=== PATIENT | female | born 1940 | race Caucasian/White ===

== ENCOUNTER 2017-10-31 12:57 | Inpatient (IN) | payer MEDICARE, BC ==
[~2017-10-31] VITALS: Ht 160 cm; Wt 94.5 kg
[2017-10-31 13:00] VITALS: BP 221/114; PULSE 80; RESP 20; O2SAT 99
--- NOTE | 2017-10-31 14:07 | RADRPT ---
EXAM DATE/TIME: 10/31/2017 13:37 [facility] COMPARISON: No previous studies available for comparison. INDICATIONS : Fall this morning, hit head and face. RADIATION DOSE: 56.35 CTDIvol (mGy) MEDICAL HISTORY : None SURGICAL HISTORY : None. ENCOUNTER: Initial ACUITY: 1 day PAIN SCALE: 4/10 LOCATION: cranial TECHNIQUE: Multiple contiguous axial images were obtained of the head. Using automated exposure control and adj ustment of the mA and/or kV according to patient size, radiation dose was kept as low as reasonably a chievable to obtain optimal diagnostic quality images. DICOM format image data is available electro nically for review and comparison. FINDINGS: CEREBRUM: The ventricles are normal for age. No evidence of midline shift, mass lesion, hemorrhage or acute in farction. No extra-axial fluid collections are seen. POSTERIOR FOSSA: The cerebellum and brainstem are intact. The 4th ventricle is midline. The cerebellopontine angle i s unremarkable. EXTRACRANIAL: There is marked soft tissue swelling overlying the left orbital region. I suspect there is an inferio r orbital rim fracture present. Facial bones CT scan is planned SKULL: The calvaria is intact. No evidence of skull fracture. CONCLUSION: Comminuted fracture of the left inferior orbital rim. Intracranial exam is normal. Jb Quintanilla MD on October 31, 2017 at 14:04 Board Certified Radiologist. This report was verified electronically.
--- NOTE | 2017-10-31 14:09 | RADRPT ---
EXAM DATE/TIME: 10/31/2017 13:39 [facility] COMPARISON: No previous studies available for comparison. INDICATIONS : Trauma, fall this morning. RADIATION DOSE: 26.34 CTDIvol (mGy) MEDICAL HISTORY : None SURGICAL HISTORY : None. ENCOUNTER: Initial ACUITY: 1 day PAIN SCALE: 4/10 LOCATION: neck TECHNIQUE: Volumetric scanning of the cervical spine was performed. Multiplanar reconstructions in the sagittal, coronal and oblique axial planes were performed. Using automated exposure control and adjustment o f the mA and/or kV according to patient size, radiation dose was kept as low as reasonably achievable to obtain optimal diagnostic quality images. DICOM format image data is available electronically f or review and comparison. FINDINGS: VERTEBRAE: Normal vertebral body height. Mild intervertebral disc space narrowing at the C6-7 and C5-6. No endpl ate fracture is seen. ALIGNMENT: No evidence of subluxation. C2-C3: The bony spinal canal is normal in size. No evidence of disc bulge or herniation. The neural forami na are bilaterally patent. C3-C4: The bony spinal canal is normal in size. No evidence of disc bulge or herniation. The neural forami na are bilaterally patent. The right C4 lamina is hypoplastic and sclerotic. C4-C5: The bony spinal canal is normal in size. No evidence of disc bulge or herniation. The neural forami na are bilaterally patent. C5-C6: The bony spinal canal is normal in size. No evidence of disc bulge or herniation. The neural forami na are bilaterally patent. C6-C7: The bony spinal canal is normal in size. No evidence of disc bulge or herniation. The neural forami na are bilaterally patent. C7-T1: The bony spinal canal is normal in size. No evidence of disc bulge or herniation. The neural forami na are bilaterally patent. CONCLUSION: Normal examination for an acute fracture. Degenerative disc disease at multiple levels. Hypoplastic s clerotic right C4 lamina. Jb Quintanilla MD on October 31, 2017 at 14:06 Board Certified Radiologist. This report was verified electronically.
--- NOTE | 2017-10-31 14:11 | RADRPT ---
EXAM DATE/TIME: 10/31/2017 13:39 [facility] COMPARISON: No previous studies available for comparison. INDICATIONS : Trauma, fall this morning. RADIATION DOSE: 65.36 CTDIvol (mGy) MEDICAL HISTORY : None SURGICAL HISTORY : None. ENCOUNTER: Initial ACUITY: 1 day PAIN SCORE: 5/10 LOCATION: facial TECHNIQUE: Volumetric scanning of the facial bones was performed. Using automated exposure control and adjustme nt of the mA and/or kV according to patient size, radiation dose was kept as low as reasonably achiev able to obtain optimal diagnostic quality images. DICOM format image data is available electronicall y for review and comparison. FINDINGS: ORBITS: There is a fracture through the inferior orbital rim on the left beginning anteriorly and extending m edially into the lamina papyracea. Fluid extends into the orbit without obvious muscular entrapment. I do not see any displaced fractures impinging the muscles NASAL BONE: The nasal bone and maxillary spine are intact ZYGOMATIC ARCHES: Symmetric without evidence of fracture. SINUSES: There is extensive fluid in the left maxillary sinus.. NASAL CAVITY: The nasal septum is intact and midline. The lacrimal ducts are intact. SOFT TISSUES: Soft tissue swelling overlying the left orbital region. INTRACRANIAL: No intracranial air seen. CRIBIFORM PLATE: Grossly intact. CONCLUSION: Left periorbital soft tissue swelling with a slightly displaced fracture of the inferior orbital rim. Jb Quintanilla MD on October 31, 2017 at 14:08 Board Certified Radiologist. This report was verified electronically.
--- NOTE | 2017-10-31 14:33 | RADRPT ---
EXAM DATE/TIME: 10/31/2017 13:18 [facility] COMPARISON: No previous studies available for comparison. INDICATIONS : Fell today. MEDICAL HISTORY : Injury to left wrist SURGICAL HISTORY : Surgery 2011 left wrist ENCOUNTER: Initial ACUITY: 1 day PAIN SCORE: Non-responsive. LOCATION: Left wrist FINDINGS: Three views left wrist demonstrates there is an impacted distal radial fracture with marked anterior angulation of the fracture. The distal radius is comminuted. There is marked arthritic change invol ving the 1st carpal metacarpal joint. Metatarsal bases are intact. CONCLUSION: Comminuted impacted distal radial fracture with marked anterior angulation. Jb Quintanilla MD on October 31, 2017 at 13:33 Board Certified Radiologist. This report was verified electronically.
[2017-10-31] MEDS ORDERED: ONDANSETRON HCL 4 MG/2 ML VIAL IV PUSH ONE (15:30)
[2017-10-31] MEDS ORDERED: HYDROmorphone HCL PF 2 MG/ML VIAL IV PUSH ONE (15:30)
--- NOTE | 2017-10-31 15:32 | PD ---
HPI Chief Complaint: Fall Time Seen by Provider: 14:56 Travel History International Travel<30 days: No Contact w/Intl Traveler<30days: No Traveled to known affect area: No History of Present Illness HPI 77 year-old female with a history of hypertension presents to the emergency room for evaluation of left arm pain and left-sided facial pain after mechanical trip and fall earlier today. Patient states she was walking on concrete when she lost her balance and fell forward landing directly on her face. She was wearing glasses. States she doesn't exactly remember falling because it happened so quickly but there was no loss of consciousness. She had her arms extended in front of her. She called an ambulance and they splinted her wrist and recommended she go to the nearby hospital in [place]. Patient is traveling from [place] to [facility] for the winter and wanted to keep going to be near her son. She takes baby aspirin daily. Of note, she had surgery on her left wrist in 2011 in [place]. Her surgeon took out a pin 2 weeks ago. She does not have a primary care physician or orthopedic surgeon in the area. Since falling she has had aches and pains throughout her body but nothing as severe as her wrist. [facility] Past Medical History High Cholesterol: Yes Hypertension: Yes ?: Not Menopausal: Yes Past Surgical History Cholecystectomy: Yes Eye Surgery: Yes (bilat cats ) Hysterectomy: Yes Social History Alcohol Use: No Tobacco Use: No Substance Use: No Allergies-Medications (Allergen,Severity, Reaction): Coded Allergies: codeine (Verified Allergy, Severe, 10/31/17) Reported Meds & Prescriptions Reported Meds & Active Scripts Active Reported Losartan (Losartan Potassium) 25 Mg Tab 25 Mg PO DAILY Vitamin B-12 (Cyanocobalamin) 1,000 Mcg Tab 1,000 Mcg PO DAILY Carvedilol 6.25 Mg Tab 6.25 Mg PO BID Hydrochlorothiazide 12.5 Mg Tab 12.5 Mg PO DAILY Citalopram (Citalopram Hydrobromide) 20 Mg Tab 20 Mg PO DAILY Omeprazole 20 Mg Tab 20 Mg PO DAILY Review of Systems Except as stated in HPI: all other systems reviewed are Neg Physical Exam Narrative GENERAL: Well-nourished, well-developed female in no acute distress. Afebrile. Ambulatory. SKIN: Focused skin assessment warm/dry. There is moderate periorbital ecchymosis of the left eye. HEAD: Normocephalic. EYES: PERRL, EOMI, no discharge or injection. No scleral icterus. EARS: Bilateral pinnae and external canals appear within normal limits. Bilateral tympanic membranes without erythema, dullness or perforation. No hemotympanum. NECK: Supple, trachea midline. No JVD or lymphadenopathy. CARDIOVASCULAR: Regular rate and rhythm without murmurs, gallops, or rubs. RESPIRATORY: Breath sounds equal bilaterally. No accessory muscle use. MUSCULOSKELETAL: No cyanosis. Moderate edema of the left wrist. 2+ radial pulse. Less than 2 second capillary refill distally. Moderate to significant tenderness to palpation of the distal radius. Full range motion of the elbow. Data Data Last Documented VS Vital Signs Date Time Temp Pulse Resp B/P (MAP) Pulse Ox O2 Delivery O2 Flow Rate FiO2 10/31/17 13:00 80 20 221/114 (149) [address] Brain W/O Iv Contrast(Rout) (10/31/17 ) Ct Cerv Spine W/O Contrast (10/31/17 ) Ct Facial Bones W/O Iv Cont (10/31/17 ) Wrist, Complete ([id number]) (10/31/17 ) Hydromorphone Pf Inj (Dilaudid Pf Inj) (10/31/17 15:30) Ondansetron Inj (Zofran Inj) (10/31/17 15:30) Splint Or Brace Apply/Monitor (10/31/17 15:28) Electrocardiogram (10/31/17 15:38) Complete Blood Count With Diff (10/31/17 15:38) Comprehensive Metabolic Panel (10/31/17 15:38) Prothrombin Time / Inr (Pt) (10/31/17 15:38) Act Partial Throm Time (Ptt) (10/31/17 15:38) Chest, Single Ap (10/31/17 15:38) Iv Access Insert/Monitor (10/31/17 15:38) Sodium Chloride 0.9% Flush (Ns Flush) (10/31/17 15:45) Diet Npo (10/31/17 Dinner) Consult Orthopedic (10/31/17 ) Consult Oral, Facial Surgery (10/31/17 ) Wrist, Limited (Ap&Lat) (10/31/17 ) (Hub Use Only)Inp Phy Cons/Ref (10/31/17 ) (Hub Use Only)In Phy Cons/Ref (10/31/17 ) Admit To Inpatient (10/31/17 ) Vital Signs (Adult) Q4H (10/31/17 16:27) Scouring Train Operator Chief / Telemetry .CONTINUOUS (10/31/17 16:27) Intake + Output TRACIE.QSHIFT (10/31/17 16:27) Sodium Chlor 0.9% 1000 Ml Inj (Ns 1000 M (10/31/17 17:00) Sodium Chloride 0.9% Flush (Ns Flush) (10/31/17 16:30) Sodium Chloride 0.9% Flush (Ns Flush) (10/31/17 21:00) Acetaminophen (Tylenol) (10/31/17 16:30) Ondansetron Inj (Zofran Inj) (10/31/17 16:30) Pt Request For Service (10/31/17 16:27) Ot Request For Service (10/31/17 16:27) Scd Bilateral/Knee High TRACIE.BID (10/31/17 16:27) Naloxone Inj (Narcan Inj) (10/31/17 16:30) Bisacodyl Supp (Dulcolax Supp) (10/31/17 16:30) Inpatient Certification (10/31/17 ) (Hub Use Only)[facility] Cons[facility]Ref (10/31/17 ) Fiberglass Sugartong Sp Ad Arm (10/31/17 ) Sling Cradle Arm (10/31/17 ) Admit Order (Ed Use Only) (10/31/17 16:35) Labs Laboratory Tests Test 10/31/17 16:00 White Blood Count 12.1 TH/MM3 Red Blood Count 4.45 MIL/MM3 Hemoglobin 14.2 GM/DL Hematocrit 42.2 % Mean Corpuscular Volume 94.9 FL Mean Corpuscular Hemoglobin 32.0 PG Mean Corpuscular Hemoglobin Concent 33.8 % Red Cell Distribution Width 12.9 % Platelet Count 214 TH/MM3 Mean Platelet Volume 10.4 FL Neutrophils (%) (Auto) 82.1 % Lymphocytes (%) (Auto) 12.6 % Monocytes (%) (Auto) 4.4 % Eosinophils (%) (Auto) 0.6 % Basophils (%) (Auto) 0.3 % Neutrophils # (Auto) 9.9 TH/MM3 Lymphocytes # (Auto) 1.5 TH/MM3 Monocytes # (Auto) 0.5 TH/MM3 Eosinophils # (Auto) 0.1 TH/MM3 Basophils # (Auto) 0.0 TH/MM3 CBC Comment DIFF FINAL Differential Comment Prothrombin Time 10.5 SEC Prothromb Time International Ratio 1.0 RATIO Activated Partial Thromboplast Time 24.6 SEC Blood Urea Nitrogen 19 MG/DL Creatinine 0.72 MG/DL Random Glucose 95 MG/DL Total Protein 7.5 GM/DL Albumin 3.9 GM/DL Calcium Level 8.8 MG/DL Alkaline Phosphatase 53 U/L Aspartate Amino Transf (AST/SGOT) 22 U/L Alanine Aminotransferase (ALT/SGPT) 31 U/L Total Bilirubin 0.4 MG/DL Sodium Level 139 MEQ/L Potassium Level 3.6 MEQ/L Chloride Level 102 MEQ/L Carbon Dioxide Level 29.3 MEQ/L Anion Gap 8 MEQ/L Estimat Glomerular Filtration Rate 78 ML/MIN MDM Medical Decision Making Medical Screen Exam Complete: Yes Emergency Medical Condition: Yes Medical Record Reviewed: Yes Differential Diagnosis Fracture, sprain, strain, contusion Narrative Course 77-year-old female presents to the emergency room for evaluation of left wrist pain and facial pain after a mechanical trip and fall earlier today. Patient fell forward landing face first. She denies loss of consciousness. Most significant pain is in the left wrist. Left wrist is neurovascularly intact with 2+ radial pulse and less than 2 second capillary refill distally. X-ray showed comminuted impacted distal radial fracture with marked anterior angulation. Patient was given Dilaudid and Zofran and her wrist was reduced in the OR with significant improvement. Sugar tong splint placed. I spoke to Dr. Jaimes, who recommends admission to medicine service for Dr. Jean-Baptiste to repair tomorrow. I spoke to Dr. Wright about the displaced fracture of the inferior orbital rim. Patient reports double vision but has no entrapment. Consults were placed. CBC and CMP are unremarkable. Patient is agreeable to admission. Physician Communication Physician Communication I spoke to Dr. Jaimes who recommends admission to the medical service with consultation to Dr. Jean-Baptiste for surgery tomorrow. Patient should be kept nothing by mouth after midnight. I spoke to Dr. Wright who will come to the ER to evaluate the patient. I spoke to Dr. Dorsey who agrees to admit this patient to her service. Diagnosis Primary Impression: Closed fracture of left wrist Qualified Codes: S62.102A - Fracture of unspecified carpal bone, left wrist, initial encounter for closed fracture Additional Impression: Orbit fracture, left Qualified Codes: S02.82XA - Fracture of other specified skull and facial bones , left side, initial encounter for closed fracture Admitting Information Admitting Physician Requests: Admit Condition: Stable Rosa Shaw Oct 31, 2017 15:32
[2017-10-31] MEDS ORDERED: OMEP20TA93 PO (15:35)
[2017-10-31] MEDS ORDERED: LOSA25TA PO (15:35)
[2017-10-31] MEDS ORDERED: CITA20TA4 PO (15:35)
[2017-10-31] MEDS ORDERED: VITA10002 PO (15:35)
[2017-10-31] MEDS ORDERED: HYDR12.56 PO (15:35)
[2017-10-31] MEDS ORDERED: CARV6.252 PO (15:35)
[2017-10-31] MEDS ORDERED: SODIUM CHLORIDE 0.9% FLUSH 10 ML FLUSH IVF PRN (15:45)
[2017-10-31 16:27] LABS: AUTOMATED NEUTROPHIL # 9.9 TH/MM3 (1.8-7.7); BASOPHIL % 0.3 % (0.0-2.0); EOSINOPHIL # 0.1 TH/MM3 (0-0.4); EOSINOPHIL % 0.6 % (0.0-4.0); HEMATOCRIT 42.2 % (35.0-46.0); HEMOGLOBIN 14.2 GM/DL (11.6-15.3); LYMPH % 12.6 % (9.0-44.0); LYMPHOCYTE # 1.5 TH/MM3 (1.0-4.8); MEAN CELL VOLUME 94.9 FL (80.0-100.0); MEAN CORPUSCULAR HGB CONC 33.8 % (32.0-36.0); MEAN PLATELET VOLUME 10.4 FL (7.0-11.0); MONO % 4.4 % (0.0-8.0); MONOCYTE # 0.5 TH/MM3 (0-0.9); NEUT % 82.1 % (16.0-70.0); PLATELET COUNT 214 TH/MM3 (150-450); RED BLOOD COUNT 4.45 MIL/MM3 (4.00-5.30); RED CELL DISTRIBUTION WIDTH 12.9 % (11.6-17.2); WHITE BLOOD COUNT 12.1 TH/MM3 (4.0-11.0)
[2017-10-31] MEDS ORDERED: NALOXONE HCL 0.4 MG/ML AMP IV PUSH PRN (16:30)
[2017-10-31] MEDS ORDERED: SODIUM CHLORIDE 0.9% FLUSH 10 ML FLUSH IV FLUSH PRN (16:30)
[2017-10-31] MEDS ORDERED: BISACODYL 10 MG SUPP RECTAL PRN (16:30)
[2017-10-31] MEDS ORDERED: ACETAMINOPHEN 325 MG TAB PO PRN (16:30)
[2017-10-31] MEDS ORDERED: ONDANSETRON HCL 4 MG/2 ML VIAL IVP PRN (16:30)
--- NOTE | 2017-10-31 16:31 | RADRPT ---
EXAM DATE/TIME: 10/31/2017 16:17 [facility] COMPARISON: No previous studies available for comparison. INDICATIONS : Chest discomfort; fall today. MEDICAL HISTORY : None. SURGICAL HISTORY : None. ENCOUNTER: Initial ACUITY: 1 day PAIN SCORE: 10/23 LOCATION: Bilateral chest FINDINGS: A single view of the chest demonstrates the lungs to be symmetrically aerated without evidence of mas s, infiltrate or effusion. The cardiomediastinal contours are unremarkable. Osseous structures are intact. CONCLUSION: Normal examination. Large hiatal hernia. Jb Quintanilla MD on October 31, 2017 at 16:29 Board Certified Radiologist. This report was verified electronically.
[2017-10-31 16:33] LABS: PROTHROMBIN TIME - PATIENT 10.5 SEC (9.8-11.6)
--- NOTE | 2017-10-31 16:34 | RADRPT ---
EXAM DATE/TIME: 10/31/2017 16:18 [facility] COMPARISON: No previous studies available for comparison. INDICATIONS : Post reduction left wrist. MEDICAL HISTORY : None. SURGICAL HISTORY : None. ENCOUNTER: Subsequent ACUITY: 1 day PAIN SCORE: 0/10 LOCATION: Left wrist FINDINGS: Two view examination of the left wrist demonstrates casting material overlies the fracture. There is now much better alignment of the distal radial fracture CONCLUSION: Much better alignment of the distal radial fracture with casting material been placed. Jb Quintanilla MD on October 31, 2017 at 16:30 Board Certified Radiologist. This report was verified electronically.
[2017-10-31 16:43] LABS: ALBUMIN 3.9 GM/DL (3.4-5.0); AST (GOT) 22 U/L (15-37); BICARBONATE 29.3 MEQ/L (21.0-32.0); BLOOD UREA NITROGEN 19 MG/DL (7-18); CALCIUM 8.8 MG/DL (8.5-10.1); CHLORIDE 102 MEQ/L (98-107); CREATININE 0.72 MG/DL (0.50-1.00); GLOMERULAR FILTRATION RATE 78 ML/MIN (>89); GLUCOSE,RANDOM 95 MG/DL (74-106); SODIUM (NA) 139 MEQ/L (136-145)
[2017-10-31 16:56] LABS: ALKALINE PHOSPHATASE 53 U/L (45-117); ALT (GPT) 31 U/L (10-53); TOTAL BILIRUBIN ADULT 0.4 MG/DL (0.2-1.0); TOTAL PROTEIN 7.5 GM/DL (6.4-8.2)
[2017-10-31 17:30] VITALS: BP 132/62; PULSE 64; RESP 17; TEMP 96.4; O2SAT 93
[2017-10-31] MEDS: SODIUM CHLOR 0.9% 1000 ML INJ 1,000 ML IV SCH (18:10)
--- NOTE | 2017-10-31 19:39 | EKG ---
Date Performed: 10/31/2017 Time Performed: 16:25:24 PTAGE: 77 years EKG: Sinus rhythm NORMAL ECG NO PREVIOUS TRACING DOCTOR: Geo Henry Interpretating Date/Time 10/31/2017 19:39:03
[2017-10-31 20:10] VITALS: BP 133/80; PULSE 80; RESP 18; TEMP 97; O2SAT 94
[2017-10-31] MEDS: SODIUM CHLORIDE 0.9% FLUSH 10 ML FLUSH IV FLUSH SCH (20:10)
[2017-10-31 20:12] VITALS: PULSE 74
[2017-10-31] MEDS ORDERED: HYDROmorphone HCL PF 2 MG/ML VIAL IV PUSH PRN ×2 (21:30)
--- NOTE | 2017-10-31 21:45 | HHI.HP ---
[facility] No Primary Care Physician Admission Diagnosis left distal radial fracture, left displaced inferior orbital rim Diagnoses: Chief Complaint: fall, nausea Travel History International Travel<30 Days: No Contact w/Intl Traveler <30 Da: No Traveled to Known Affected Are: No History of Present Illness 77 y/o female with history of HTN, and HLD presented to the ED after a trip and fall at a rest area. Patient is from [facility] [place] and was traveling here and stopped at a rest area for a bathroom break. When she was walking back to the car she tripped on the curb and fell forward with arms extended and hitting her face. She denies any LOC, dizziness or headaches. No chest pain, sob, fever or chills noted. She denies any pain currently but does complain of nausea and vomiting. She also states she has blurry vision in the left eye but she notices it is getting better. Review of Systems Except as stated in HPI: all other systems reviewed are Neg Past Family Social History Past Medical History HTN HLD Past Surgical History Cholecystectomy Hysterectomy Bilateral cataracts Left wrist surgery 2011 Reported Medications Reported Meds & Active Scripts Active Reported Losartan (Losartan Potassium) 25 Mg Tab 25 Mg PO DAILY Vitamin B-12 (Cyanocobalamin) 1,000 Mcg Tab 1,000 Mcg PO DAILY Carvedilol 6.25 Mg Tab 6.25 Mg PO BID Hydrochlorothiazide 12.5 Mg Tab 12.5 Mg PO DAILY Citalopram (Citalopram Hydrobromide) 20 Mg Tab 20 Mg PO DAILY Omeprazole 20 Mg Tab 20 Mg PO DAILY Allergies: Coded Allergies: codeine (Verified Allergy, Severe, 10/31/17) Active Ordered Medications Current Medications Medications (Trade) Dose Ordered Sig/Zeynep Route Start Time Stop Time Status Last Admin Sodium Chloride 1,000 ml @ 100 mls/hr Q10H IV 10/31/17 17:00 10/31/17 18:10 (NS Flush) 2 ml UNSCH PRN IV FLUSH 10/31/17 16:30 (NS Flush) 2 ml BID IV FLUSH 10/31/17 21:00 10/31/17 20:10 (Tylenol) 650 mg Q4H PRN PO 10/31/17 16:30 (Zofran Inj) 4 mg Q6H PRN IVP 10/31/17 16:30 10/31/17 20:10 (Narcan Inj) 0.4 mg UNSCH PRN IV PUSH 10/31/17 16:30 (Dulcolax Supp) 10 mg DAILY PRN RECTAL 10/31/17 16:30 Family History Mom: Uterine cancer Dad: Lymphoma Social History Tobacco use: Denies Alcohol use: Occasionally Illicit drug use: Denies Physical Exam Vital Signs Vital Signs Date Time Temp Pulse Resp B/P (MAP) Pulse Ox O2 Delivery O2 Flow Rate FiO2 10/31/17 17:30 96.4 64 17 132/62 (85) 93 10/31/17 17:10 (149) 10/31/17 13:00 80 20 221/114 (149) 99 Physical Exam GENERAL: This is a well-nourished, well-developed patient, in no apparent distress. SKIN: Left eye ecchymoses. Right palm lesion. HEAD: Atraumatic. Normocephalic. EYES: Pupils equal round and reactive. Left eye swelling ENT: Nose without bleeding, purulent drainage or septal hematoma. Airway patent. NECK: Trachea midline. No JVD or lymphadenopathy. CARDIOVASCULAR: Regular rate and rhythm without murmurs, gallops, or rubs. RESPIRATORY: Clear to auscultation. Breath sounds equal bilaterally. No wheezes , rales, or rhonchi. GASTROINTESTINAL: Abdomen soft, non-tender, nondistended. MUSCULOSKELETAL: Extremities without clubbing, cyanosis, or edema. Left wrist tenderness. No calf tenderness. NEUROLOGICAL: Awake and alert. Motor and sensory grossly within normal limits.Normal speech. Laboratory Laboratory Tests Test 10/31/17 16:00 White Blood Count 12.1 Red Blood Count 4.45 Hemoglobin 14.2 Hematocrit 42.2 Mean Corpuscular Volume 94.9 Mean Corpuscular Hemoglobin 32.0 Mean Corpuscular Hemoglobin Concent 33.8 Red Cell Distribution Width 12.9 Platelet Count 214 Mean Platelet Volume 10.4 Neutrophils (%) (Auto) 82.1 Lymphocytes (%) (Auto) 12.6 Monocytes (%) (Auto) 4.4 Eosinophils (%) (Auto) 0.6 Basophils (%) (Auto) 0.3 Neutrophils # (Auto) 9.9 Lymphocytes # (Auto) 1.5 Monocytes # (Auto) 0.5 Eosinophils # (Auto) 0.1 Basophils # (Auto) 0.0 CBC Comment DIFF FINAL Differential Comment Prothrombin Time 10.5 Prothromb Time International Ratio 1.0 Activated Partial Thromboplast Time 24.6 Blood Urea Nitrogen 19 Creatinine 0.72 Random Glucose 95 Total Protein 7.5 Albumin 3.9 Calcium Level 8.8 Alkaline Phosphatase 53 Aspartate Amino Transf (AST/SGOT) 22 Alanine Aminotransferase (ALT/SGPT) 31 Total Bilirubin 0.4 Sodium Level 139 Potassium Level 3.6 Chloride Level 102 Carbon Dioxide Level 29.3 Anion Gap 8 Estimat Glomerular Filtration Rate 78 Result Diagram: 10/31/17 1600 10/31/17 1600 Imaging Last Impressions Chest X-Ray 10/31/17 1538 Signed Impressions: Service Date/Time: October 16:17 - CONCLUSION: Normal examination. Large hiatal hernia. Jb Quintanilla MD Wrist X-Ray 10/31/17 0000 Signed Impressions: Service Date/Time: October 16:18 - CONCLUSION: Much better alignment of the distal radial fracture with casting material been placed. Jb Quintanilla MD Maxillofacial CT 10/31/17 0000 Signed Impressions: Service Date/Time: October 13:39 - CONCLUSION: Left periorbital soft tissue swelling with a slightly displaced fracture of the inferior orbital rim. Jb Quintanilla MD Head CT 10/31/17 0000 Signed Impressions: Service Date/Time: October 13:37 - CONCLUSION: Comminuted fracture of the left inferior orbital rim. Intracranial exam is normal. Jb Quintanilla MD Cervical Spine CT 10/31/17 0000 Signed Impressions: Service Date/Time: October 13:39 - CONCLUSION: Normal examination for an acute fracture. Degenerative disc disease at multiple levels. Hypoplastic sclerotic right C4 lamina. Jb Quintanilla MD Caprini VTE Risk Assessment Caprini VTE Risk Assessment: No/Low Risk (score <= 1) Caprini Risk Assessment Model Point Value = 1 Point Value = 2 Point Value = 3 Point Value = 5 Age 41-60 Minor surgery BMI > 25 kg/m2 Swollen legs Varicose veins or History of unexplained or recurrent spontaneous Oral contraceptives or hormone replacement Sepsis (< 1 month) Serious lung disease, including pneumonia (< 1 month) Abnormal pulmonary function Acute myocardial infarction Congestive heart failure (< 1 month) History of inflammatory bowel disease Medical patient at bed rest Age 61-74 Arthroscopic surgery Major open surgery (> 45 min) Laparoscopic surgery (> 45 min) Malignancy Confined to bed (> 72 hours) Immobilizing plaster cast Central venous access Age >= 75 History of VTE Family history of VTE Factor V Leiden Prothrombin [id number] Lupus anticoagulant Anticardiolipin antibodies Elevated serum homocysteine Heparin-induced thrombocytopenia Other congenital or acquired thrombophilia Stroke (< 1 month) Elective arthroplasty Hip, pelvis, or leg fracture Acute spinal cord injury (< 1 month) Prophylaxis Regimen Total Risk Factor Score Risk Level Prophylaxis Regimen 0-1 Low Early ambulation 2 Moderate Order ONE of the following: *Sequential Compression Device (SCD) *Heparin 5000 units SQ BID 3-4 Higher Order ONE of the following medications: *Heparin 5000 units SQ TID *Enoxaparin/Lovenox 40 mg SQ daily (WT < 150 kg, CrCl > 30 mL/min) *Enoxaparin/Lovenox 30 mg SQ daily (WT < 150 kg, CrCl > 10-29 mL/min) *Enoxaparin/Lovenox 30 mg SQ BID (WT < 150 kg, CrCl > 30 mL/min) AND/OR *Sequential Compression Device (SCD) 5 or more Highest Order ONE of the following medications: *Heparin 5000 units SQ TID (Preferred with Epidurals) *Enoxaparin/Lovenox 40 mg SQ daily (WT < 150 kg, CrCl > 30 mL/min) *Enoxaparin/Lovenox 30 mg SQ daily (WT < 150 kg, CrCl > 10-29 mL/min) *Enoxaparin/Lovenox 30 mg SQ BID (WT < 150 kg, CrCl > 30 mL/min) AND *Sequential Compression Device (SCD) Assessment and Plan Problem List: (1) Orbit fracture, left ICD Code: S02.82XA - Fracture of other specified skull and facial bones, left side, initial encounter for closed fracture Status: Acute (2) Closed fracture of left wrist ICD Code: S62.102A - Fracture of unspecified carpal bone, left wrist, initial encounter for closed fracture Status: Acute (3) Hypertension ICD Code: I10 - Essential (primary) hypertension Assessment and Plan 77 y/o female with history of HTN, and HLD presented to the ED after a trip and fall at a rest area. Left orbital fracture Maxillofacial CT reviewed and shows soft tissue swelling with a non displaced inferior orbital rim fracture -Consult maxillofacial for recommendations -Pain management with IV Dilaudid -NPO -IVF for hydration -Antiemetics as needed Left wrist fracture Wrist x ray reviewed and shows a distal radial fracture -Consult orthopedic -Pain management as above HTN and HLD, chronic, controlled -Resume home medications, monitor vitals DVT prophylaxis: SCDs Discussed Condition With Patient and RN Physician Certification 2 Midnight Certification Type: Admission for Inpatient Services Order for Inpatient Services The services are ordered in accordance with Medicare regulations or non- Medicare payer requirements, as applicable. In the case of services not specified as inpatient-only, they are appropriately provided as inpatient services in accordance with the 2-midnight benchmark. Estimated LOS (days): 2 days is the estimated time the patient will need to remain in the hospital, assuming treatment plan goals are met and no additional complications. Post-Hospital Plan: Home Problem Qualifiers (1) Orbit fracture, left: Qualified Codes: S02.82XA - Fracture of other specified skull and facial bones , left side, initial encounter for closed fracture (2) Closed fracture of left wrist: Qualified Codes: S62.102A - Fracture of unspecified carpal bone, left wrist, initial encounter for closed fracture Zenia Neri Oct 31, 2017 21:45
[2017-10-31] MEDS ORDERED: PROMETHAZINE INJ 25 MG/ML VIAL IM PRN (22:00)
[2017-10-31] MEDS: CARVEDILOL 6.25 MG TAB PO SCH (22:59)
[2017-10-31 23:48] VITALS: PULSE 76
[2017-11-01 00:05] VITALS: BP 143/66; PULSE 91; RESP 17; TEMP 98.8; O2SAT 94
[2017-11-01] MEDS: SODIUM CHLOR 0.9% 1000 ML INJ 1,000 ML IV SCH ×2 (03:00→12:55)
[2017-11-01 03:44] VITALS: PULSE 72
[2017-11-01 04:10] VITALS: BP 148/68; PULSE 76; RESP 17; TEMP 97.1; O2SAT 97
[2017-11-01] MEDS ORDERED: CHLORHEXIDINE GLUCONATE 2 % 1 PACK (2 CLOTHS) TOPICAL PRN (04:45)
[2017-11-01] MEDS ORDERED: POVIDONE IODINE 5% (ANTISEPSIS KIT) 4 APPLICATIONS EACH NARE PRN (04:45)
[2017-11-01] MEDS ORDERED: SODIUM CHLORID 0.9% 500 ML IV PRN (04:45)
[2017-11-01] MEDS ORDERED: METOPROLOL TARTRATE 25 MG TAB PO PRN (04:45)
[2017-11-01] MEDS ORDERED: LACTATED RINGER'S 1000 ML IV PRN (04:45)
[2017-11-01 07:20] LABS: BASOPHIL % 0.3 % (0.0-2.0); EOSINOPHIL % 0.4 % (0.0-4.0); HEMATOCRIT 36.8 % (35.0-46.0); HEMOGLOBIN 12.7 GM/DL (11.6-15.3); LYMPH % 19.3 % (9.0-44.0); LYMPHOCYTE # 1.8 TH/MM3 (1.0-4.8); MEAN CELL VOLUME 94.9 FL (80.0-100.0); MEAN CORPUSCULAR HEMOGLOBIN 32.6 PG (27.0-34.0); MEAN CORPUSCULAR HGB CONC 34.4 % (32.0-36.0); MEAN PLATELET VOLUME 10.8 FL (7.0-11.0); MONO % 7.4 % (0.0-8.0); MONOCYTE # 0.7 TH/MM3 (0-0.9); NEUT % 72.6 % (16.0-70.0); PLATELET COUNT 179 TH/MM3 (150-450); RED BLOOD COUNT 3.88 MIL/MM3 (4.00-5.30); WHITE BLOOD COUNT 9.6 TH/MM3 (4.0-11.0)
[2017-11-01 07:35] LABS: BICARBONATE 27.6 MEQ/L (21.0-32.0); CALCIUM 8.5 MG/DL (8.5-10.1); CREATININE 0.69 MG/DL (0.50-1.00)
--- NOTE | 2017-11-01 07:55 | MB ---
cc: SYMONE WRIGHT DMD DATE OF CONSULTATION 10/31/2017 REASON FOR CONSULTATION Left orbital rim fracture. HISTORY OF PRESENT ILLNESS This is a 77-year-old female who I have seen and examined this evening. She is alert, awake and oriented x3 in no acute distress. Apparently says she was walking on the concrete and loss of balance/tripped and she fell landing on her face and on her hand. She denies any loss of consciousness. Denies any pain in the eye or any facial pain. Denies any fever, chills, nausea, vomiting, any shortness of breath, any difficulty breathing or difficulty and difficulty swallowing or any neck pain. She reported that she did have some diplopia earlier today as was told to me by ER physician, but now she indicates to me that it is resolving hour by hour and is getting much better. PAST MEDICAL HISTORY Past medical history is significant for hypertension. PAST SURGICAL HISTORY She reports eye surgery and hysterectomy. SOCIAL HISTORY Denies any alcohol, tobacco or illicit drug use. ALLERGIES CODEINE MEDICATIONS As per report: 1. Losartan 2. Carvedilol 3. Hydrochlorothiazide 4. Citalopram 5. Omeprazole EXAMINATION VITAL SIGNS: Temperature 96.4, pulse is 64, respiration 17, blood pressure is 132/62 with oxygen saturation of 93%. HEAD, EYES, EARS, NOSE, AND THROAT: Pupils are equal, round, and reactive to light and accommodation. Extraocular movements are intact. There is left periorbital edema and there is ecchymosis that is noted. There is no entrapment appreciated at this time. In terms of visual acuity, she says she has some double vision and it gets better if she sees with each eye, but then she also says it is resolving much better than it was several hours ago and hour by hour it is getting better. At times now, she says she does not see any double vision at the same time also. Facial bones and nasal bones have been all palpated. No gross tenderness to palpation. Positive range of motion of the neck. No tenderness that is noted. Palpation of the rims appear stable both infraorbital rims. No crepitus that is noted. CT scan of the facial bones shows a fracture extending from the rim to the left orbital floor. There is some mild displacement the left orbital floor, but I do not appreciate any gross herniation of any content especially the muscles. There is also a fluid level in the left maxillary sinus. LABORATORY DATA White count is 12.1, H&H is 14.2 and 42.2 with platelets of 214. PT is 10.5, INR is 1.0 with a PTT of 24.6. IMPRESSION AND PLAN This is a 77-year-old female status post trip and fall with a minimally displaced left orbital floor fracture/rim with some diplopia that appears to be resolving and also with left-sided V2 paresthesia. Bilateral orbital edema and ecchymosis. We will plan to put the patient on sinus precautions and give her 8 mg of Decadron now. We will reassess the patient tomorrow. I did explain to the patient that she may need surgery to place an orbital floor plate if it is required. She does wear glasses. We can also for her follow-up in our office in one week for the swelling to resolve and she can be followed by an powerhouse electrician apprentice before we proceed with any surgery. The benefits, risks, indication of the procedure, procedure in detail and the options of no treatment alternatives were all discussed with this patient. The risks are not limited to postop pain, infection, bleeding, damage to the adjacent soft tissue, hard tissue anesthesia complications, numbness, visual disturbances including blindness, all questions and concerns were addressed. Symone Wright DMD RRT/EKV /6:48 PM /7:33 AM
[2017-11-01 08:00] VITALS: BP 167/65; PULSE 74; RESP 16; TEMP 97.8; O2SAT 95
--- NOTE | 2017-11-01 08:51 | HHI.PR ---
Subjective Remarks Pain controlled. hoping to eat soon. states she saw Dr. Hernandez and he recommended conservative management for the left arm. She no longer has blurry vision and is able to read the words on the board. No nausea or vomiting. Objective Vitals Vital Signs Date Time Temp Pulse Resp B/P (MAP) Pulse Ox O2 Delivery O2 Flow Rate FiO2 11/01/17 04:10 97.1 76 17 148/68 (94) 97 11/01/17 03:44 72 11/01/17 00:05 98.8 91 17 143/66 (91) 94 10/31/17 23:48 76 10/31/17 20:12 74 10/31/17 20:10 97.0 80 18 133/80 (97) 94 10/31/17 17:30 96.4 64 17 132/62 (85) 93 10/31/17 17:10 (149) 10/31/17 13:00 80 20 221/114 (149) 99 I/O 10/31/17 10/31/17 10/31/17 11/01/17 11/01/17 11/01/17 07:00 15:00 23:00 07:00 15:00 23:00 Intake Total 0 ml 0 ml Output Total 240 ml Balance -240 ml 0 ml Intake Oral 0 ml 0 ml Output Emesis 240 ml # Voids 0 3 # Bowel Movements 0 0 Result Diagram: 11/01/17 0605 11/01/17 0605 Imaging Last Impressions Chest X-Ray 10/31/17 1538 Signed Impressions: Service Date/Time: October 16:17 - CONCLUSION: Normal examination. Large hiatal hernia. Jb Quintanilla MD Wrist X-Ray 10/31/17 0000 Signed Impressions: Service Date/Time: October 16:18 - CONCLUSION: Much better alignment of the distal radial fracture with casting material been placed. Jb Quintanilla MD Maxillofacial CT 10/31/17 0000 Signed Impressions: Service Date/Time: October 13:39 - CONCLUSION: Left periorbital soft tissue swelling with a slightly displaced fracture of the inferior orbital rim. Jb Quintanilla MD Head CT 10/31/17 0000 Signed Impressions: Service Date/Time: October 13:37 - CONCLUSION: Comminuted fracture of the left inferior orbital rim. Intracranial exam is normal. Jb Quintanilla MD Cervical Spine CT 10/31/17 0000 Signed Impressions: Service Date/Time: October 13:39 - CONCLUSION: Normal examination for an acute fracture. Degenerative disc disease at multiple levels. Hypoplastic sclerotic right C4 lamina. Jb Quintanilla MD Objective Remarks GENERAL: This is a well-nourished, well-developed patient, in no apparent distress. SKIN: Left eye ecchymoses. Right palm lesion. HEAD: Atraumatic. Normocephalic. EYES: Pupils equal round and reactive. EOMI ENT: Nose without bleeding, purulent drainage or septal hematoma. Airway patent. NECK: Trachea midline. CARDIOVASCULAR: Regular rate and rhythm without murmurs RESPIRATORY: Clear to auscultation. Breath sounds equal bilaterally. No wheezes , GASTROINTESTINAL: Abdomen soft, non-tender, nondistended. MUSCULOSKELETAL: Extremities without edema. Left arm w dressing/splint in place. NEUROLOGICAL: Awake and alert. .Normal speech. A/P Problem List: (1) Orbit fracture, left ICD Code: S02.82XA - Fracture of other specified skull and facial bones, left side, initial encounter for closed fracture Status: Acute (2) Closed fracture of left wrist ICD Code: S62.102A - Fracture of unspecified carpal bone, left wrist, initial encounter for closed fracture Status: Acute (3) Hypertension ICD Code: I10 - Essential (primary) hypertension Assessment and Plan 77 y/o female with history of HTN, and HLD presented to the ED after a trip and fall at a rest area. Left orbital fracture Maxillofacial CT reviewed and shows soft tissue swelling with a non displaced inferior orbital rim fracture - maxillofacial evaluated the pt and started pt on decadron. He will re- evaluate her this morning. Awaiting final recs. -Pain management with IV Dilaudid -NPO -IVF for hydration -Antiemetics as needed Left wrist fracture Wrist x ray reviewed and shows a distal radial fracture -Per pt, she spoke w Dr. Hernandez who would like to treat it conservatively. -Pain management as above HTN and HLD, chronic, controlled -on home medications, monitor vitals DVT prophylaxis: SCDs Discharge Planning awaiting final recs from consultants Problem Qualifiers (1) Orbit fracture, left: Qualified Codes: S02.82XA - Fracture of other specified skull and facial bones , left side, initial encounter for closed fracture (2) Closed fracture of left wrist: Qualified Codes: S62.102A - Fracture of unspecified carpal bone, left wrist, initial encounter for closed fracture Elizabeth Angeles MD Nov 01, 2017 08:51
[2017-11-01] MEDS ORDERED: PANTOPRAZOLE SOD 20 MG DELAYED RELEASE TAB PO SCH (09:00)
[2017-11-01] MEDS ORDERED: LOSARTAN 25 MG TAB PO SCH (09:00)
[2017-11-01] MEDS ORDERED: HYDROCHLOROTHIAZIDE 12.5 MG CAP PO SCH (09:00)
[2017-11-01] MEDS ORDERED: POTASSIUM CHLORIDE 20 MEQ CONTROLLED RELEASE TAB PO ONE (09:00)
[2017-11-01] MEDS ORDERED: CITALOPRAM HYDROBROMIDE 20 MG TAB PO SCH (09:00)
[2017-11-01] MEDS: SODIUM CHLORIDE 0.9% FLUSH 10 ML FLUSH IV FLUSH SCH (09:00)
[2017-11-01 09:11] VITALS: PULSE 79
[2017-11-01] MEDS: CARVEDILOL 6.25 MG TAB PO SCH (09:12)
--- NOTE | 2017-11-01 11:12 | MB ---
cc: SONIA DAWKINS DATE OF CONSULTATION: 11/01/2017 REASON FOR CONSULTATION: Left distal radius fracture. CONSULTING PHYSICIAN Dr. Charlene Dorsey. HISTORY Blanca is a 77-year-old female. She is from [place] and was traveling here to visit her son. [place] she [place] and [place]. She landed on her left arm. She did also hit her head and has a black eye. She presented emergency room complaining of left wrist pain. X-rays revealed a comminuted left distal radius fracture. She is currently awake on the orthopedic floor. Her chief complaint is a left wrist. She denies loss of consciousness. Pain is worse with movement. PAST MEDICAL HISTORY/ILLNESSES High cholesterol hypertension SURGERIES Cholecystectomy Hysterectomy cataract surgery left wrist pinning. MEDICATIONS 1. Losartan. 2. Vitamin D. 3. Carvedilol. 4. Hydrochlorothiazide. 5. Citalopram. 6. Omeprazole. ALLERGIES CODEINE Family history is positive for uterine cancer and mother and lymphoma in her father. SOCIAL HISTORY The patient lives with her in [facility]. They spend two months a year in [place]. She denies tobacco or drug use. She drinks alcohol occasionally. REVIEW OF SYSTEMS The patient denies headache, visual changes, neck pain, chest pain, shortness of breath, abdominal pain, nausea or recent weight loss, nausea, vomiting or numbness amp extremities fever, chills or recent weight loss. She complains of left wrist pain. She also has mild left facial pain. PHYSICAL EXAMINATION IN GENERAL: The patient is a pleasant 77-year-old female. She is awake and alert. She has no acute distress. She is mildly overweight. VITAL SIGNS: Temperature 97.1, pulse 76, respirations 17, blood pressure 140/68, O2 sat 97% on room air. HEAD, EYES, EARS, NOSE, AND THROAT: Head: The patient is normocephalic. Pupils are equal. Head: The patient is normocephalic but does have a bruise and contusion around her left eye. Pupils are equal. NECK: Soft, nontender. Trachea is midline. ABDOMEN: Soft, nontender, nondistended. EXTREMITIES: Examination of the right upper extremity reveals no pain with shoulder, elbow or wrist motion. She has intact sensation in all fingers. She has good cap refill fingers. Skin is intact. Radial pulses palpable. Examination of left arm reveals no pain with shoulder, elbow motion. She has used an diffusely tender around the wrist. She has mild swelling. The fingers. She has intact sensation in all fingers. Skin is intact on left hand. Examination of lower extremities reveals no significant pain with hip, knee or ankle motion. Skin is intact both feet. Sensation is intact in both feet. X-RAYS X-rays of left wrist reviewed x-rays reveal a mildly comminuted mildly angulated left distal radius fracture. There is minimal shortening. There is approximately 15 degrees of dorsal tilt of the articular surface. IMPRESSION Mildly comminuted mildly angulated left distal radius fracture. PLAN The option discussed the patient and discussed at length with the patient treatment options including surgical open reduction internal fixation, versus nonsurgical treatment of the cast. At this point the patient is relatively sedentary. She is right-handed. She stated she states that she does not have high demand use of her left arm. After discussion of the risks and benefits of surgical and nonsurgical options. She would like to proceed with a trial nonoperative treatment. She understands the fracture displaces further she may need surgical intervention. She will remain in a splint. She will follow up with me in office in approximately 10 days for repeat x-rays of left wrist. All other questions were answered. A mid-level provider in my office (nurse practitioner or physician power plant assistant) may see this patient on follow-up visits and continue to implement the objectives of this plan including: Starting or adjusting medications, injections , cast application, orthotics, brace application, physical therapy, radiological studies (including x-ray, MRI, CT, ultrasound, bone scan), vascular studies, neurologic studies, specialist consultation, and proceeding with surgical management, as appropriate. MD ANTOINE Mclaughlin/carolin /9:34 AM /11:00 AM MAICO
[2017-11-01 12:00] VITALS: BP 154/69; PULSE 65; RESP 16; TEMP 98.1; O2SAT 96
--- NOTE | 2017-11-01 15:07 | HHI.PR ---
Subjective Remarks pt seen and examined today s/p fall --> left orbital floor fracture mildly displaced aaox3, nad, tolerating po well, watching TV, OOB to chair reports double vision almost completely resolved Objective Vital Signs Date Time Temp Pulse Resp B/P (MAP) Pulse Ox O2 Delivery O2 Flow Rate FiO2 11/01/17 12:00 98.1 65 16 154/69 (97) 96 11/01/17 09:11 79 11/01/17 08:00 97.8 74 16 167/65 (99) 95 11/01/17 04:10 97.1 76 17 148/68 (94) 97 11/01/17 03:44 72 11/01/17 00:05 98.8 91 17 143/66 (91) 94 10/31/17 23:48 76 10/31/17 20:12 74 10/31/17 20:10 97.0 80 18 133/80 (97) 94 10/31/17 17:30 96.4 64 17 132/62 (85) 93 10/31/17 17:10 (149) I/O 10/31/17 10/31/17 10/31/17 11/01/17 11/01/17 11/01/17 07:00 15:00 23:00 07:00 15:00 23:00 Intake Total 0 ml 0 ml Output Total 240 ml Balance -240 ml 0 ml Intake Oral 0 ml 0 ml Output Emesis 240 ml # Voids 0 3 # Bowel Movements 0 0 Result Diagram: 11/01/17 0605 11/01/17 0605 Objective Remarks PERRLA/EOMI + good visual acuity, no entrapment no gross diplopia stated by patient with finger vision test left periorbital edema/ecchymosis no active heme noted no tenderness palpation facial/nasal bones left infraorbital rim stable, no tenderness, no gross step off Assessment and Plan Assessment and Plan s/p fall --> left orbital floor fracture mildly displaced ok to d/c to home from OMS standpoint pt does not want any surgical intervention - will reevaluate next week 'f/up dr Wright next week [phone] sinus precautions - no nose blowing, no closed mouth sneezing, no drinking with straw no driving, can ambulate with assistance f/up with manufacturing project engineer next week Adrian Wright DMD Nov 01, 2017 15:07
[2017-11-01] MEDS ORDERED: HYDR-3288 PO (16:07)
[2017-11-01] MEDS ORDERED: COLA100C5 PO (16:10)
== END 2017-11-01 17:12 | disposition home or self-care (01) | DRG 563 ==
LOC: NEPE 12:57 → NEDA 16:40 → N06A 17:20
PROVIDERS: ADMIT Hospitalist; ATTEND Hospitalist
PROC: 0PSJXZZ Reposition Left Radius, External Approach (ICD-10-PCS; principal; 2017-10-31)
DX: S52.502A Unspecified fracture of the lower end of left radius, initial encounter for closed fracture (principal); S02.32XA Fracture of orbital floor, left side, initial encounter for closed fracture; I10 Essential (primary) hypertension; S05.12XA Contusion of eyeball and orbital tissues, left eye, initial encounter; E78.5 Hyperlipidemia, unspecified; W01.0XXA Fall on same level from slipping, tripping and stumbling without subsequent striking against object, initial encounter; Y93.01 Activity, walking, marching and hiking; Y92.89 Other specified places as the place of occurrence of the external cause; Z88.5 Allergy status to narcotic agent
CPT/HCPCS: 25505; 70450; 70486; 71045; 72125; 73100; 73110; 80048; 80053; 85025; 85610; 85730; 93005; 96374; 96375; J1170; J2405; J2550; J7030